=== PATIENT | female | born 1940 | race African-American/Black ===

== ENCOUNTER 2024-03-11 11:54 | Emergency (ER) | payer OTHER ==
[~2024-03-11] VITALS: Ht 170.2 cm; Wt 77.1 kg
[2024-03-11 12:02] VITALS: BP 166/74; PULSE 88; RESP 18; TEMP 97.7; O2SAT 99
[2024-03-11 14:30] VITALS: BP 151/49; PULSE 79; RESP 18; TEMP 98; O2SAT 97
== END 2024-03-11 19:32 | disposition home or self-care (01) ==
LOC: MED 11:54
DX: R13.10 Dysphagia, unspecified (principal); G20.A1 Parkinson's disease without dyskinesia, without mention of fluctuations
CPT/HCPCS: 43762; 74240; 99284; Q9967